=== PATIENT | female | born 1990 | race Caucasian/White ===

== ENCOUNTER 2019-05-19 09:18 | Day surgery (SDC) | payer OTHER, SELFPAY ==
[2019-05-09 09:29] VITALS: BMI 27.8
[2019-05-19] VITALS (7 sets, daily range): BP systolic 102–111; BP diastolic 50–80; PULSE 58–84; RESP 12–19; TEMP 36.4–36.8; O2SAT 95–100; BMI 28.0
--- NOTE | 2019-05-19 | PATH_ITS ---
[facility] Accession Number: [id number] . 01 Material submitted: . fallopian tube - BILATERAL FALLOPIAN TUBES . 02 Diagnosis: Bilateral Fallopian Tubes, Tubal Ligation: Complete cross sections of segments of fallopian tube x2. Benign paratubal cysts are present; n egative for atypia or malignancy. MRV/05/23/2019 . 02 Electronically signed: . Kiah Dubose MD, Pathologist NPI- [id number] . 01 Gross description: . Received in formalin, labeled bilateral fallopian tubes, are two fimbriated fallopian tubes (tube #1: length-6.3 cm, diameter-0.3 cm; tube #2: length-7.1 cm, diameter-0.4 cm) with lagos smooth shiny serosa and multiple paratubal cysts (0.3 cm-1.0 cm) containing clear colorless fluid. The lumens are lagos and unremarkable. Section code: (A1) fallopian tube #1, traveling sales representative serial sections; (A2) fimbria #1, bivalved, entirely submitted; (A3) fallopian tube #2, traveling sales representative serial sections; (A4) fimbria #2, bivalved, entirely submitted. ([id number]) /MRV . 02 Pathologist provided ICD-10: Z30.2 . 02 CPT . 156489 Performed at: 01 [facility] [address], [place], [place] [id number] MD Nacho Saez MD Phone: [phone] Performed at: [address] [facility] [address] , [place], [place] [id number] MD Iman Batista MD Phone: [phone]
[2019-05-19] MEDS: LACTATED RINGERS 1,000 ML 100 ML IV ×2 (09:42→12:27)
--- NOTE | 2019-05-19 11:33 | PM.HP.1 ---
History of Present Illness Date Patient Seen: 05/19/19 Time Patient Seen: 11:33 Chief complaint: [id number] Narrative: Patient is a 28-year-old 0 who desires permanent sterilization She is here for a laparoscopic bilateral salpingectomy Patient History Surgical History (Updated 05/09/19 @ 09:33 by Anna Fish RN) No history of previous surgery (Acute) Social History household members: spouse Smoking Status: Unknown if ever smoked alcohol intake: current Family & Social History Social History: household members spouse Tobacco & Substance use: Smoking Status Unknown if ever smoked alcohol intake current alcohol intake frequency a few times a week Substance Use Type does not use Meds Home Medications Medication Instructions Recorded Confirmed Type No Known Home Medications 04/04/19 05/09/19 History Allergies Allergy/AdvReac Type Severity Reaction Status Date / Time No Known Drug Allergies Allergy Verified 05/19/19 09:32 Exam Vital Signs (past 8 hours): - 05/19/19 09:35 Temperature 98.2 F Pulse Rate 79 Respiratory Rate 16 Blood Pressure 111/80 Pulse Oximetry 99 Oxygen Delivery Method Room Air Narrative Exam Narrative: HEENT: No thyromegaly, no anterior cervical or supraclavicular lymphadenopathy. Lungs:Clear to auscultation bilaterally, no wheezes. Cardiovascular: Regular rate and rhythm, no murmurs, rubs, or gallops. Abdomen: No scars. No hepatosplenomegaly. No masses palpable. External genitalia: Normal Vagina: Normal Cervix: Normal. Nulliparous Bimanual exam: 6 Week size uterus. Mobile.] Rectal: No masses. Assessment & Plan Assessment & Plan narrative: Assessment: 28-year-old 0 desires permanent sterilization Plan: Laparoscopic bilateral salpingectomy The risks, benefits, and alternatives to the procedure were explained to the patient. The risks including bleeding, infection, injury to the bowel, bladder, or ureters. She understands that this is a permanent procedure. She understands all these risks and agrees to proceed. A full par Q was held and consent form was signed. Time Spent With Patient Time with patient: 15-24 minutes
--- NOTE | 2019-05-19 11:35 | PM.PREOP ---
Pre-operative Note Interval Note History & Physical reviewed/Exam performed by Physician: Yes Changes to H&P: No
--- NOTE | 2019-05-19 12:08 | SUR.OPER ---
Lithotomy on padded OR bed, head on pillow, arms secured on padded arm boards at <90 degrees abduction. Legs secured in padded yellow fins stirrups.
--- NOTE | 2019-05-19 12:53 | PM.GYNOP.1 ---
Operative Date/Time/Diagnoses Date of procedure: 05/19/19 Time of procedure: 12:53 Pre-op diagnosis: Desires permanent sterilization Post-op diagnosis: same Procedure: Procedures Operation Date: 05/19/19 10:45 Actual Procedures Side Surgeon p Laparoscopic Salpingectomy Bilateral Taylor Pyle MD Indications: Desires permanent sterilization Surgeon: Taylor Pyle Anesthesia Type: General Operative Notes Findings: Normal uterus, tubes, and ovaries Normal appendix Normal gallbladder and liver Closure Type: primary Specimen(s): left tube and right tube Applied: catheter Estimated blood loss (mL): 5 Blood products transfused: none Procedure in detail: After informed consent was obtained, the patient was taken to the operating room where she was placed in the dorsal supine position. After adequate general endotracheal anesthesia was achieved, she was placed in the dorsal lithotomy position, and prepped and draped in the usual sterile fashion. A time-out was performed. A bivalve speculum was placed into the vagina and the anterior lip of the cervix grasped with a single-tooth tenaculum. The cervical os was sequentially dilated until the Zumi uterine manipulator could pass easily into the endometrial cavity. The single-tooth tenaculum was removed from the anterior lip of the cervix. The bivalve speculum was removed from the vagina. Attention was then turned to the abdomen where 6 cc of 0.5% Marcaine with epinephrine were injected in the umbilical fold. A 5 mm incision was made. The Veress needle was placed into the peritoneal cavity, and its placement confirmed by aspiration and drop test. The abdominal cavity was insufflated with 3.8 L of CO2. The Veress needle was removed, and a 5 mm trocar was placed without difficulty. Two other incisions were made just above the pubic symphysis and midway between the pubic symphysis and the umbilicus, left of midline. These were 5 mm incisions. Two 5 mm trocars were placed under direct visualization. The right tube was grasped with an atraumatic grasper. Using the PlasmaKinetic was settings of 40 w, the mesosalpinx on the right side was cauterized and cut all the way down to the cornua of the uterus. The tube was amputated at the cornua. All of this was repeated on the patient's left side. Hemostasis was achieved. The tubes were removed through the suprapubic incision. Hemostasis was achieved. The instruments were removed from the abdomen. The CO2 was allowed to escape. The incisions were repaired with 4-0 Biosyn in a subcuticular fashion. Steri-Strips, 2 x 2, and op site were placed. The Zumi uterine manipulator was removed from the uterus. Sponge, lap, and instrument counts were correct x2. The patient tolerated the procedure well, and was taken to PACU in stable condition. Complications: none Post-operative Condition: stable Disposition: PACU Plan for aftercare: Home after recovery
[2019-05-19] MEDS: BUPIVACAINE 0.5% W/ EPI (PF) VIAL 30 ML INJ (12:55)
[2019-05-19] MEDS: fentaNYL 100 MCG/2 ML INJ 50 MCG IV ×2 (13:05→13:10)
[2019-05-19] MEDS: OXYCODONE/ACETAMINOPHEN 5/325 TABLET 1 TAB PO (13:33)
== END 2019-05-19 14:18 | disposition home or self-care (01) ==
PROVIDERS: Visit Provider Obstetrics & Gynecology
PROC: 0UT74ZZ Resection of Bilateral Fallopian Tubes, Percutaneous Endoscopic Approach (ICD-10-PCS; CPT 58661; principal; 2019-05-19 10:45)
DX: Z30.2 Encounter for sterilization (principal); N83.8 Other noninflammatory disorders of ovary, fallopian tube and broad ligament
CPT/HCPCS: 58661; J1100; J1885; J2405; J2704; J3010